=== PATIENT | female | born 1975 | race Two or more races ===

== ENCOUNTER 2023-11-29 05:46 | Day surgery (SDC) | payer OTHER ==
[2023-11-24 09:15] LABS: HEMATOCRIT 39.3 % (36.0-45.00); HEMOGLOBIN 13.2 g/dL (12.0-15.00); MEAN CELL VOLUME 87.8 fL (80.00-100.00); MEAN CORPUSCULAR HEMOGLOBIN 29.4 pg (27.00-32.0); MEAN CORPUSCULAR HGB CONC 33.5 g/dl (32.0-36.0); PLATELET COUNT 244 K/uL (150-450); RED BLOOD COUNT 4.47 M/uL (4.00-6.00); RED CELL DISTRIBUTION WIDTH 13.6 % (11.5-14.5)
[2023-11-24 09:29] LABS: URINE APPEARANCE Clear; URINE BILIRRUBIN Negative (NEGATIVE); URINE BLOOD Moderate; URINE COLOR Yellow; URINE GLUCOSE Negative (NEGATIVE); URINE KETONE Negative (NEGATIVE); URINE LEUKOCYTE Moderate; URINE NITRATE Negative; URINE PROTEIN Negative (NEGATIVE); URINE UROBILINOGEN 0.2 E.U./dl
[2023-11-24 09:35] LABS: INR 0.97; PARTIAL THROMBOPLASTIN TIME 28.2 SECONDS (22.0-34.0); PROTHROMBIN TIME 10.6 SECONDS (9.0-11.5)
[2023-11-24 09:35] LABS: URINE EPITHELIAL CELLS 37.8 uL (0.0-38.8); URINE RBC 21.2 uL (0.0-20.8); URINE WBC 25.6 uL (0.0-23.2)
[2023-11-24 10:07] LABS: ALBUMIN 3.7 gm/dL (3.4-5.0); BILIRUBIN TOTAL 0.43 mg/dL (0.3-1.2); CALCIUM 9.2 mg/dL (8.5-10.1); CREATININE SERUM 0.67 mg/dL (0.55-1.02); GFR 94.34; GLOBULINA 3.3 G/DL (2.4-3.5); POTASSIUM 4.25 mEq/L (3.5-5.1)
[2023-11-24 10:09] LABS: URINE YEAST FEW /hpf
[2023-11-29] MEDS ORDERED: POVIDONE-IODINE 118 ML BOTT TOP ONE (17:47)
[2023-11-29] MEDS ORDERED: ONDANSETRON HCL 2 MG/ML VIAL IV STA (19:34)
== END 2023-11-29 22:20 | disposition home or self-care (01) ==
LOC: CIR.AMB 05:46
PROVIDERS: ATTEND Obstetrics & Gynecology
DX: C54.1 Malignant neoplasm of endometrium (principal); N84.0 Polyp of corpus uteri; N93.8 Other specified abnormal uterine and vaginal bleeding; Z88.2 Allergy status to sulfonamides

== ENCOUNTER 2024-01-17 07:39 | Outpatient (CLI) | payer OTHER | END 2024-01-17 07:41 | disposition home or self-care (01) | LOC: NUCLEAR 07:39 | PROVIDERS: ATTEND Obstetrics & Gynecology Gynecologic Oncology | DX: C54.1 Malignant neoplasm of endometrium (principal) ==

== ENCOUNTER 2024-01-24 09:45 | Inpatient (IN) | payer OTHER ==
[~2024-01-24] VITALS: Ht 170.2 cm; Wt 66.7 kg
[2024-01-24 11:21] VITALS: BP 109/74
[2024-01-27] MEDS ORDERED: METRONIDAZOLE/SODIUM CHLORIDE 100 ML IV ONE (16:00)
[2024-01-27] MEDS ORDERED: CEFAZOLIN SODIUM 2,000 MG in 0.9 % SODIUM CHLORIDE 100 ML IV ONE (16:00)
[2024-01-27] MEDS ORDERED: HEMOSTATIC MATRIX 1 KIT KIT TOP ONE (16:00)
[2024-01-27] MEDS ORDERED: SURGIFLO APPLICATOR 1 EACH APPL TOP ONE (16:00)
[2024-01-27] MEDS ORDERED: POVIDONE-IODINE 118 ML BOTT TOP ONE (16:15)
[2024-01-27] MEDS ORDERED: MORPHINE SULFATE 4 MG/ML CARTRIDGE IV PRN (18:30)
[2024-01-27] MEDS ORDERED: ONDANSETRON HCL 2 MG/ML VIAL IV PRN (18:30)
[2024-01-27] MEDS ORDERED: RINGERS SOLUTION,LACTATED 1,000 ML IV SCH (18:30)
[2024-01-27] MEDS ORDERED: OxyCODONE HCL 5 MG TABLET (ROXICODONE) PO SCH (18:30)
[2024-01-27] MEDS ORDERED: MORPHINE SULFATE 4 MG/ML VIAL IV ONE (18:45)
[2024-01-27 20:28] LABS: HEMATOCRIT 38.6 % (36.0-45.00); HEMOGLOBIN 12.6 g/dL (12.0-15.00); MEAN CELL VOLUME 89.4 fL (80.00-100.00); MEAN CORPUSCULAR HEMOGLOBIN 29.3 pg (27.00-32.0); MEAN CORPUSCULAR HGB CONC 32.8 g/dl (32.0-36.0); PLATELET COUNT 239 K/uL (150-450); RED BLOOD COUNT 4.31 M/uL (4.00-6.00); RED CELL DISTRIBUTION WIDTH 14.1 % (11.5-14.5)
[2024-01-27 20:41] VITALS: BP 103/65; O2SAT 100
[2024-01-27 20:41] LABS: ALBUMIN 3.4 gm/dL (3.4-5.0); CALCIUM 8.9 mg/dL (8.5-10.1); CREATININE SERUM 0.61 mg/dL (0.55-1.02); GFR 105.13; PHOSPHOROUS 3.8 mg/dL (2.5-4.9); POTASSIUM 4.03 mEq/L (3.5-5.1)
[2024-01-27] MEDS ORDERED: FAMOTIDINE/PF 20 MG/2 ML VIAL IV PUSH SCH (21:00)
[2024-01-28] MEDS ORDERED: CEFAZOLIN SODIUM 1,000 MG VIAL IV SCH (01:00)
[2024-01-28] MEDS ORDERED: GABAPENTIN 300 MG CAPSULE PO SCH (01:00)
[2024-01-28 01:06] VITALS: BP 111/67; O2SAT 100
[2024-01-28 07:05] LABS: HEMATOCRIT 32.3 % (36.0-45.00); MEAN CELL VOLUME 89.1 fL (80.00-100.00); MEAN CORPUSCULAR HEMOGLOBIN 30.4 pg (27.00-32.0); MEAN CORPUSCULAR HGB CONC 34.1 g/dl (32.0-36.0); PLATELET COUNT 223 K/uL (150-450); RED BLOOD COUNT 3.62 M/uL (4.00-6.00); RED CELL DISTRIBUTION WIDTH 13.1 % (11.5-14.5)
[2024-01-28 07:36] LABS: ALBUMIN 2.7 gm/dL (3.4-5.0); CALCIUM 8.4 mg/dL (8.5-10.1); CREATININE SERUM 0.52 mg/dL (0.55-1.02); GFR 126.4; PHOSPHOROUS 4.4 mg/dL (2.5-4.9); POTASSIUM 3.94 mEq/L (3.5-5.1)
[2024-01-28 08:00] VITALS: BP 90/55; O2SAT 100
[2024-01-28] MEDS ORDERED: IBUprofen 800 MG TABLET PO SCH (09:00)
[2024-01-28] MEDS ORDERED: ENOXAPARIN SODIUM 40 MG/0.4 ML SYRINGE SUBCUTANEO SCH (09:00)
[2024-01-28] MEDS ORDERED: METOCLOPRAMIDE HCL 5 MG/ML VIAL IV SCH (09:00)
== END 2024-01-28 13:36 | disposition home or self-care (01) | DRG 741 ==
LOC: O/R 01-27 06:44 → SURH 01-27 09:45
PROVIDERS: ADMIT Obstetrics & Gynecology Gynecologic Oncology; ATTEND Obstetrics & Gynecology Gynecologic Oncology
PROC: 0UT74ZZ Resection of Bilateral Fallopian Tubes, Percutaneous Endoscopic Approach (ICD-10-PCS; 2024-01-27)
PROC: 0UT24ZZ Resection of Bilateral Ovaries, Percutaneous Endoscopic Approach (ICD-10-PCS; 2024-01-27)
PROC: 07BC4ZZ Excision of Pelvis Lymphatic, Percutaneous Endoscopic Approach (ICD-10-PCS; 2024-01-27)
PROC: 07BD4ZZ Excision of Aortic Lymphatic, Percutaneous Endoscopic Approach (ICD-10-PCS; 2024-01-27)
PROC: 8E0W4CZ Robotic Assisted Procedure of Trunk Region, Percutaneous Endoscopic Approach (ICD-10-PCS; 2024-01-27)
PROC: 0UT94ZZ Resection of Uterus, Percutaneous Endoscopic Approach (ICD-10-PCS; principal; 2024-01-27 16:15)
DX: C54.1 Malignant neoplasm of endometrium (principal); N84.0 Polyp of corpus uteri; D36.0 Benign neoplasm of lymph nodes; Z20.822 Contact with and (suspected) exposure to COVID-19
CPT/HCPCS: 58548; S2900

== ENCOUNTER 2025-01-10 07:18 | Outpatient (CLI) | payer OTHER | END 2025-01-10 07:19 | disposition home or self-care (01) | LOC: NUCLEAR 07:18 | PROVIDERS: ATTEND Obstetrics & Gynecology Gynecologic Oncology | DX: C54.1 Malignant neoplasm of endometrium (principal) ==